=== PATIENT | female | born 1980 | race Two or more races ===

== ENCOUNTER 2025-01-11 14:30 | Emergency (ER) | payer MEDICAID, SELFPAY ==
[2025-01-11 14:39] VITALS: BP 149/84; PULSE 76; RESP 18; TEMP 36.8; O2SAT 98
--- NOTE | 2025-01-11 14:47 | PD.EDADULT ---
ED General RME/HPI General Chief complaint: General Adult/Misc Complain Stated complaint: PAIN IN GROIN DOWN TO FOOT X 3 DAYSA Time Seen by Provider: 01/11/25 14:34 Source: patient Arrival date/time: 01/11/25 14:30 44-year-old female with no known medical history presents to the emergency room with a chief complaint of pain to her right groin x 5 days Mode of arrival: ambulatory Limitations: no limitations Related Data Home Medications ?Medication ?Instructions ?Recorded ?Confirmed metformin 1,000 mg tablet 1,000 mg PO BID 05/07/17 07/23/17 insulin glulisine U-100 100 25 unit subcut TIDACHS 05/08/17 07/23/17 unit/mL subcutaneous solution (Apidra U-100 Insulin) Previous Rx's ?Medication ?Instructions ?Recorded insulin degludec 100 unit/mL (3 76 unit (0.76 mL) subcut HS ##0 05/08/17 mL) subcutaneous pen (Tresiba FlexTouch U-100 insulin) ondansetron 8 mg disintegrating 8 mg PO BID PRN nausea and 07/23/17 tablet (Zofran ODT) vomiting #10 tabs cyclobenzaprine 10 mg tablet 10 mg PO TID 7 days #21 tabs 01/11/25 Allergies Allergy/AdvReac Type Severity Reaction Status Date / Time No Known Allergies Allergy Verified 01/11/25 14:36 Review of Systems Review of Systems Systems Reviewed: All systems reviewed, normal except as documented Constitutional Constitutional: Reports system reviewed and no additional complaints, except as documented, Denies fatigue, Denies fever(s), Denies headache(s) and Denies weakness Eyes Eyes: Reports system reviewed and no additional complaints, except as documented, Denies blurry vision and Denies change in vision ENT Ears, Nose, Mouth, and Throat: Reports system reviewed and no additional complaints, except as documented, Denies otalgia, Denies headache(s), Denies nasal congestion, Denies throat swelling and Denies vertigo Cardiovascular Cardiovascular: Reports system reviewed and no additional complaints, except as documented, Denies chest pain, Denies dyspnea and Denies dyspnea on exertion Respiratory Respiratory: Reports system reviewed and no additional complaints, except as documented, Denies chest congestion, Denies cough, Denies dyspnea, Denies dyspnea on exertion and Denies wheezing Gastrointestinal Gastrointestinal: Reports system reviewed and no additional complaints, except as documented, Denies abdominal pain, Denies cramping, Denies nausea and Denies vomiting Genitourinary Genitourinary: Reports system reviewed and no additional complaints, except as documented Musculoskeletal Musculoskeletal: Reports system reviewed and no additional complaints, except as documented, Reports arthralgias, Denies back pain and Reports stiffness Integumentary/Breasts Skin/Breast: Reports system reviewed and no additional complaints, except as documented and Denies wounds Neurologic Neurologic: Reports system reviewed and no additional complaints, except as documented, Denies confusion, Denies headache(s), Denies lack of coordination, Denies vertigo and Denies weakness Psychiatric Psychiatric: Reports system reviewed and no additional complaints, except as documented, Denies anxiety, Denies confusion, Denies depression, Denies paranoia, Denies suicidal ideation and Denies tactile hallucinations Endocrine Endocrine: Reports system reviewed and no additional complaints, except as documented and Denies fatigue Hematologic/Lymphatic Hematologic/Lymphatic: Reports system reviewed and no additional complaints, except as documented and Denies lymphadenopathy Allergic/Immunologic Allergic/Immunologic: Reports system reviewed and no additional complaints, except as documented, Denies throat swelling, Denies urticaria and Denies wheezing Past Medical History Past Medical History NEUROLOGIC: Negative Neurological Disorders or Seizures CARDIAC: Negative Cardiac Disorders or Congestive Heart Failure RESPIRATORY: Negative Chronic Obstructive Pulmonary Disease (COPD) GASTROINTESTINAL: Negative Gastrointestinal Disorders GENITOURINARY: Negative Renal Disease REPRODUCTIVE: Positive Previous Pregnancies () ENDOCRINE: Positive Endocrine Disorders and Diabetes Mellitus Type 2; Negative Diabetes Mellitus Type 1 OTHER HISTORY: Negative Blood Transfusions or Anesthesia Reactions Family History FAMILY HISTORY: Positive Family Cardiac Disorders (MOTHER) Surgical History SURGICAL: Positive Section (X2) Social History SMOKING STATUS: Never smoker ED Exam General Limitations: Present no limitations General appearance: Present alert and in no apparent distress Head Head exam: Present atraumatic Eye Eye exam: Present normal appearance, PERRL and EOMI ENT ENT exam: Present normal exam, normal oropharynx and mucous membranes moist Neck Neck exam: Present normal inspection, full ROM and trachea midline Chest Chest inspection: Present normal inspection and symmetric chest wall rise Respiratory Respiratory exam: Present normal lung sounds bilaterally Cardiovascular Cardiovascular exam: Present regular rate, normal rhythm and normal heart sounds Abdominal Exam Abdominal exam: Present soft and normal bowel sounds Extremities Exam Extremities exam: Present normal inspection and full ROM Back Exam Back exam: Present normal inspection, full ROM and sciatic notch tenderness (R); Absent CVA tenderness (R) or CVA tenderness (L) Neurological Exam Neurological exam: Present alert, oriented X3 and CN II-XII intact Psychiatric Psychiatric exam: Present normal affect and normal mood Skin Skin exam: Present warm, dry, intact and normal color Course Quality Measures none Orders Category Date Time Status Ketorolac Inj [Toradol Inj] Med 01/11/25 14:45 Discontinued 30 mg IM X1 ONE Vital Signs Vital signs: Vital Signs Temperature 98.3 F 01/11/25 14:39 Pulse Rate 76 01/11/25 14:39 Respiratory Rate 18 01/11/25 14:39 Blood Pressure 149/84 H 01/11/25 14:39 Pulse Oximetry (%) 98 01/11/25 14:39 Oxygen Delivery Method Room Air 01/11/25 14:39 O2 saturation 98% with normal limits Discharge Plan Plan Patient Disposition: HOME (Self Care) Discharge Disposition comment: Stable Prescriptions/Referrals Prescriptions/Med Rec: New cyclobenzaprine 10 mg tablet 10 mg PO TID 7 Days Qty: 21 0RF No Action metformin 1,000 mg Tablet 1,000 mg PO BID insulin glulisine U-100 [Apidra U-100 Insulin] 100 unit/mL Solution 25 unit SUB-Q TIDACHS insulin degludec [Tresiba FlexTouch U-100] 100 UNIT/1 ML insulin pen 76 unit Sub-Q HS Qty: 0 0RF ondansetron [Zofran ODT] 8 mg tablet,disintegrating 8 mg PO BID PRN (Reason: nausea and vomiting) Qty: 10 0RF Problem List Clinical Impression: Pain in right leg Patient/Caregiver Discharge Instructions Education Materials: ED Muscle Strain, Extremity Additional Instructions: Por favor, comun?quese con schwarz m?dico de cabecera en las pr?ximas 24 a 48 horas. Se envi? la medicaci?n a schwarz farmacia; por favor, rec?erasmo y t?dennis seg?n las indicaciones. Si presenta cualquier signo o s?ntoma de empeoramiento, regrese a la drew de emergencias de inmediato. Print Language: Salvadorean Stand Alone Forms: [employer] Award Info., Work/School Release, Patient Portal Info Letter DYAN/HELENE Supervising Physician DYAN/HELENE Supervising Physician: Dr. Arredondo MDM Narrative MDM hospital course (for use when minimal MDM required): 44-year-old female with no known medical history presents to the emergency room with a chief complaint of pain to her right groin x 5 days Patient is hemodynamically stable and in no apparent distress Physical examination shows tenderness and pain to the right groin and leg. The patient also has some right sciatic notch tenderness with palpation The patient has full range of motion and is able to ambulate with no problems. Patient denies any trauma or any falls. There is no swelling. The patient has a negative Homans' sign. Patient was discharged and educated to follow-up with primary care provider in the next 24 to 48 hours and return to the emergency room for any evidence of worsening signs or symptoms Clinical Information Provided by: none Medical Records reviewed None Meds/Rx considered, not ordered None Labs/Rad/Tests considered, not ordered None Chronic Illness/Social Conditions which may negatively complicate care or outcome(s)-explain: None or not applicable EKG EKG not done Labs Labs: none Imaging Imaging interpretation: none Medication Administration(s) none Medication Administration History Discontinued Medications Ketorolac Tromethamine (Ketorolac Inj 60 Mg/2 Ml Vial) 30 mg IM X1 ONE Stop: 01/11/25 14:46 Last Admin: 01/11/25 14:48 Dose: 30 mg Documented By: LORENA Medication given Diagnosis Differential Diagnosis ED Complaint MDM: Acute leg pain
[2025-01-11] MEDS: KETOROLAC INJ 60 MG/2 ML VIAL 30 MG IM (14:48)
== END 2025-01-11 14:52 | disposition home or self-care (01) ==
LOC: SERX 14:56
PROVIDERS: Emergency Provider Emergency Medicine; PCP Internal Medicine
DX: M79.604 Pain in right leg (principal)
CPT/HCPCS: 96372; 99282; J1885